=== PATIENT | female | born 1960 | race Caucasian/White ===

== ENCOUNTER 2018-09-10 15:16 | Emergency (ER) | payer MEDICAID ==
--- NOTE | 2018-09-10 16:05 | EDPHY ---
H & P Time Seen by Provider: 09/10/18 15:46 HPI/ROS: CHIEF COMPLAINT: Laceration right hand HISTORY OF PRESENT ILLNESS: 57-year-old immunocompetent female, right-hand dominant, up-to-date tetanus sustained accidental laceration to her right 3rd MCP dorsal aspect when she was cleaning of in and rubbed against a sharp metal edge. No paresthesia. No sensory deficit. Occurred shortly prior to arrival. PHYSICAL EXAM (Prior to examination, patient consented to physical exam, hands were washed and my usual and customary physical exam procedures followed) 1) GENERAL: Well-developed, well-nourished, alert and oriented. Appears to be in no acute distress. 2) HEAD: Normocephalic 3) HEENT: sclera anicteric 4) LUNGS: Breathing comfortably. 5) SKIN: Right hand dorsal aspect 3rd MCP 2 cm well-demarcated linear laceration 6) MUSCULOSKELETAL: Active and passive Extensor function intact at all digits with no deficits. No signs of infection. 7) NEUROLOGIC: Full sensation two-point discrimination intact. Smoking Status: Former smoker Constitutional: Initial Vital Signs Temperature (C) 36.8 C 09/10/18 15:25 Heart Rate 62 09/10/18 15:25 Respiratory Rate 16 09/10/18 15:25 Blood Pressure 118/80 09/10/18 15:25 O2 Sat (%) 97 09/10/18 15:25 O2 Delivery Mode Room Air Allergies/Adverse Reactions: Tetracyclines Allergy (Severe, Verified 09/10/18 15:25) Anaphylaxis Home Medications: Medication Instructions Recorded lamoTRIgine [LamICTAL 100 MG (*)] 300 mg PO DAILY 01/20/14 Cephalexin [Keflex] 500 mg PO TID 5 Days cap 09/10/18 MDM/Departure - [facility] Procedures: Procedure: Laceration repair. I explained the indications, risks and benefits for both laceration repair and anesthetic administration. Verbal consent was obtained from the patient. The laceration on the right hand was anesthetized using 0.5% bupivicaine without epinephrine. After anesthetic administered the patient was observed for a period of time and had no apparent adverse effects. The wound was cleaned, prepped, draped in normal sterile fashion and explored to its base. No foreign body seen, no foreign bodies palpated. There were no deep structures involved. No tendon injury was identified. The wound was repaired with 4 simple interrupted 5 O Prolene sutures. The wound repair was simple. The procedure was performed by myself. Patient has been informed that scarring will occur, although efforts have been made to minimize this. ED Course/Re-evaluation: Re-evaluation with serial exams. Doubt traumatic arthrotomy to the MCP. Started on prophylactic antibiotics. Plan will be discharge after primary wound closure and follow-up for suture removal. Usual and customary wound precautions instructions provided. Patient feels comfortable being discharged. Care of patient under supervision of secondary supervising physician Dr Garay . - Depart Disposition: Home, Routine, Self-Care Clinical Impression: Laceration of right hand Qualifiers: Encounter type: initial encounter Foreign body presence: without foreign body Qualified Code(s): S61.411A - Laceration without foreign body of right hand, initial encounter Condition: Good Instructions: Care For Your Stitches (ED), Laceration (ED) Additional Instructions: Return to the ER if you develop redness, swelling, discharge, warmth to the wound, red streaks going up your arm or any other symptoms that concern you. Prescriptions: Cephalexin [Keflex] 500 mg PO TID 5 Days cap Referrals: Return, to the ER in 10 days for suture removal [Other] - As per Instructions
[2018-09-10 16:54] VITALS: BP 116/63
== END 2018-09-10 16:54 | disposition home or self-care (01) ==
PROC: 0HQFXZZ Repair Right Hand Skin, External Approach (ICD-10-PCS; principal; 2018-09-10)
DX: S61.411A Laceration without foreign body of right hand, initial encounter (principal); W26.8XXA Contact with other sharp object(s), not elsewhere classified, initial encounter; Y92.9 Unspecified place or not applicable; Y99.9 Unspecified external cause status; Y93.9 Activity, unspecified; Z87.891 Personal history of nicotine dependence
CPT/HCPCS: L3925

== ENCOUNTER 2019-02-03 21:31 | Emergency (ER) | payer MEDICAID | END 2019-02-03 22:52 | disposition home or self-care (01) ==